=== PATIENT | female | born 1970 | race Caucasian/White ===

== ENCOUNTER → 2017-09-19 | Outpatient (CLI) | payer BC ==
[~2017-09-19] MED LIST: CALC-56 PO; CHOL200024 PO; FEXO180T72 PO; FOLI1TAB8 PO; LEVO100T PO; LIDOCAINE 1%-EPI 1:100K, 20ML ONE; SIMV10TA3 PO; SODIUM BICARBONATE 4.0%, 5ML ONE; SOLI5TAB2 PO
== END | disposition home or self-care (01) ==
LOC: CFH 08:39
PROVIDERS: ATTEND Surgery
DX: N63.24 Unspecified lump in the left breast, lower inner quadrant (principal); N64.52 Nipple discharge
CPT/HCPCS: 19285; 77065; J3490

== ENCOUNTER 2017-10-13 06:10 | Day surgery (SDC) | payer BC ==
[~2017-10-13] VITALS: Ht 162.6 cm; Wt 69.0 kg
[~2017-10-13 06:10] MED LIST changes: -LIDOCAINE 1%-EPI 1:100K, 20ML ONE; -SODIUM BICARBONATE 4.0%, 5ML ONE
[2017-10-13] MEDS ORDERED: LACTATED RINGERS 1,000 ML IV SCH (06:40)
[2017-10-13 06:41] VITALS: BP 101/61
[2017-10-13] MEDS ORDERED: PLEASE ENTER HEIGHT AND WEIGHT MC SCH (07:30)
[2017-10-13 07:44] LABS: HCG UR SG 1.028 (1.003-1.030)
[2017-10-13] MEDS ORDERED: PROPOFOL 10 MG/ML, 20ML ONE (08:12)
[2017-10-13] MEDS ORDERED: DEXAMETHASONE 4 MG/ML, 1ML ONE (08:12)
[2017-10-13] MEDS ORDERED: ONDANSETRON 2MG/ML, 2ML ONE (08:12)
[2017-10-13] MEDS ORDERED: LORazepam 2 MG/ML, 1ML IVPush PRN (08:30)
[2017-10-13] MEDS ORDERED: HYDROmorphone 1 MG/ML, 1ML IV PRN (08:30)
[2017-10-13] MEDS ORDERED: ACETAMINOPHEN 325 MG TABLET PO PRN (08:30)
[2017-10-13] MEDS ORDERED: MEPERIDINE/PF 25MG/0.5ML IVPush PRN (08:30)
[2017-10-13] MEDS ORDERED: OXYcodone 5 MG/5 ML ORAL.SOL UDC PO PRN (08:30)
[2017-10-13] MEDS ORDERED: KETOROLAC 30 MG/1 ML IV PRN (08:30)
[2017-10-13] MEDS ORDERED: LABETALOL 5MG/ML, 20ML IV PRN (08:30)
[2017-10-13] MEDS ORDERED: PROMETHAZINE 25 MG/ML, 1ML IV PRN (08:30)
[2017-10-13] MEDS ORDERED: hydrALAzine 20 MG/ML, 1ML IV PRN (08:30)
[2017-10-13] MEDS ORDERED: FENTANYL PF 100 MCG/2ML IV PRN (08:30)
[2017-10-13] MEDS ORDERED: ALBUTEROL SULFATE 2.5 MG/3 ML NPPB PRN (08:30)
[2017-10-13] MEDS ORDERED: ACETAMINOPHEN 650 MG/20.3 ML UDC ONE (08:58)
[2017-10-13] MEDS ORDERED: OXYcodone 5 MG/5 ML ORAL.SOL UDC ONE (08:58)
== END 2017-10-13 10:45 | disposition home or self-care (01) ==
LOC: OUT 06:10
PROVIDERS: ATTEND Surgery
DX: D24.2 Benign neoplasm of left breast (principal); N60.42 Mammary duct ectasia of left breast; N64.52 Nipple discharge; E78.00 Pure hypercholesterolemia, unspecified; E03.9 Hypothyroidism, unspecified; Z85.820 Personal history of malignant melanoma of skin; Z87.39 Personal history of other diseases of the musculoskeletal system and connective tissue; Z98.890 Other specified postprocedural states; Z79.899 Other long term (current) drug therapy
CPT/HCPCS: 19125; 76098; 81025; 88305; J0171; J1100; J2250; J2405; J2704; J3010; J3490; J7120